=== PATIENT | male | born 1970 | race Caucasian/White ===

== ENCOUNTER 2022-04-08 06:39 | Day surgery (SDC) | payer OTHER, SELFPAY ==
[2022-04-04 11:56] VITALS: BMI 46.0
[2022-04-08] MEDS: sodium chloride 0.9% 1,000 ML 30 ML IV (07:00)
[2022-04-08 07:04] VITALS: BP 155/80; PULSE 78; RESP 20; TEMP 36.3; O2SAT 98
--- NOTE | 2022-04-08 07:40 | W.PM.OPSFHP ---
Same Day Surgery H&P Indication for Procedure/HPI DATE OF PROCEDURE: April 08, 2022 CHIEF COMPLAINT/INDICATIONFOR SURGICAL PROCEDURE: Screening PREOP DIAGNOSIS: screen PLANNED PROCEDURE: Operation Date: 04/08/22 07:30 Proposed Procedures p Colonoscopy 28595,Z12.11(Not Applicable) - Seamus Love MD Medications/Allergies* Home Medications Medication Instructions Recorded Confirmed Type divalproex 500 mg tablet,delayed 500 mg PO BID 03/26/22 04/08/22 History release (Depakote) ibuprofen 800 mg tablet 800 mg PO DAILY 03/26/22 04/04/22 History levothyroxine 75 mcg tablet 75 mcg PO DAILY 03/26/22 04/04/22 History lisinopril 10 mg tablet 10 mg PO BID 03/26/22 04/04/22 History sildenafil 100 mg tablet 100 mg PO DAILY PRN Sexual Activity 03/26/22 04/04/22 History Allergies/Adverse Reactions Allergy/AdvReac Type Severity Reaction Status Date / Time No Known Allergies Allergy Unverified 04/04/22 11:54 Current Medications: Generic Name Dose Route Start Last Admin Trade Name Freq PRN Reason Stop Dose Admin Sodium Chloride 1,000 mls @ 30 mls/hr 04/08/22 06:45 04/08/22 07:00 Sodium Chloride 0.9% IV 30 mls/hr .Q24H RACIEL Administration Pertinent History/Comorbid Conditions* Family History (Updated 01/15/22 @ 09:18 by Kelli Resendez LPN) Clotting disorder Father Grandfather Social History Smoking and tobacco status: former smoker Second hand smoke exposure: Yes Smoking risk assessment/counseling performed?: No Alcohol intake: current Alcohol intake frequency: holidays/special occasions only Alcohol type: beer, wine and hard liquor Desire information about alcohol rehabilitation?: No Counseling given: No Adopted: No Caregiver/support person: Yes Lives independently: No Household members: significant other and children Housing: House Marital status: Number of children: 1 Number of grandchildren: 1 Highest education level completed: Some College, No Degree service: Yes status: Discharged branch: [employer] Assignments: Outside 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
--- NOTE | 2022-04-08 07:54 | P.ANESASSM_ITS ---
Pre-Anesthetic Assessment Height/Weight: Height 1.83 m Weight 154.221 kg Temp Pulse Resp BP Pulse Ox O2 Del Method 97.3 F L 78 20 H 155/80 98 04/08/22 07:04 04/08/22 07:04 04/08/22 07:04 04/08/22 07:04 04/08/22 07:04 04/08/22 07:04 Preop Diagnosis: screen Operation Date: 04/08/22 07:30 Proposed Procedures p Colonoscopy 70495,Z12.11(Not Applicable) - Seamus Love MD Familial anesthetic complications: none Was Beta Kamila taken within 24 hours: N/A Was Clonidine taken within 24 hours: N/A Last intake: Intake Last Liquid Date 04/07/22 Last Liquid Time 20:30 Last Solid Date 04/06/22 Last Solid Time 20:00 Last Intake: 22:00 Social Tobacco (chew 1/2 can a day. last at 0500) and No alcohol Exam alert, oriented x 3, clear to auscultation bilaterally and regular rate & rhythm Airway Submandibular: within normal limits Cervical ROM: within normal limits Mallampati: Class II Dentition: full Pulmonary Sleep Apnea (cpap) CV/HEM Hypertension None reported Hepatic None reported GI None reported Metabolic Morbid Obesity and Thyroid Disease Musc/skel Lower Back Pain Neuropsych Bipolar Anesthetic Plan ASA status: 3 Anesthesia: MAC Risk of > 500 ml blood loss (7ml/kg in children): No Medications/Allergies Home Medications Medication Instructions Recorded Confirmed Last Taken Type divalproex 500 mg tablet,delayed 500 mg PO BID 03/26/22 04/08/22 04/08/22 History release (Depakote) ibuprofen 800 mg tablet 800 mg PO DAILY 03/26/22 04/04/22 04/07/22 History levothyroxine 75 mcg tablet 75 mcg PO DAILY 03/26/22 04/04/22 04/07/22 History lisinopril 10 mg tablet 10 mg PO BID 03/26/22 04/04/22 04/07/22 History sildenafil 100 mg tablet 100 mg PO DAILY PRN Sexual Activity 03/26/22 04/04/22 Unknown History Allergies Allergy/AdvReac Type Severity Reaction Status Date / Time No Known Allergies Allergy Unverified 04/04/22 11:54 Current Medications Generic Name Dose Route Start Last Admin Trade Name Freq PRN Reason Stop Dose Admin Sodium Chloride 1,000 mls @ 30 mls/hr 04/08/22 06:45 04/08/22 07:00 Sodium Chloride 0.9% IV 30 mls/hr .Q24H RACIEL Administration PFSH Anesthesia Family History Father Clotting disorder Grandfather Clotting disorder Social History Smoking and tobacco status: former smoker Second hand smoke exposure: Yes Smoking risk assessment/counseling performed?: No Alcohol intake: current Alcohol intake frequency: holidays/special occasions only Alcohol type: beer, wine and hard liquor Desire information about alcohol rehabilitation?: No Counseling given: No Adopted: No Caregiver/support person: Yes Lives independently: No Household members: significant other and children Housing: House Marital status: Number of children: 1 Number of grandchildren: 1 Highest education level completed: Some College, No Degree service: Yes status: Discharged branch: [employer] Assignments: Outside [facility] ([facility]) Known or Potential Exposure: None Current occupational status: employed 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
[2022-04-08 08:50] VITALS: BP 88/59; PULSE 83; RESP 18; TEMP 36.6; O2SAT 93
[2022-04-08 09:02] VITALS: BP 118/82; PULSE 78; RESP 18; TEMP 36.7; O2SAT 97
--- NOTE | 2022-04-08 14:46 | ANE.PACU2 ---
Inpatient post-anesthesia follow up: Airway intact: Yes Vital signs: Temperature 98.1 F Pulse Rate 78 Respiratory Rate 18 Blood Pressure 118/82 Pulse Oximetry 97 Oxygen Delivery Me thod Room Air Oxygen Flow Rate Fraction of Inspir ed Oxygen Hydration adequate: Yes Nausea and vomiting: No Pain level: 1 Mental status: Baseline
== END 2022-04-08 09:12 | disposition home or self-care (01) ==
PROVIDERS: PCP Emergency Medicine Emergency Medical Services; Visit Provider Internal Medicine
PROC: 0DJD8ZZ Inspection of Lower Intestinal Tract, Via Natural or Artificial Opening Endoscopic (ICD-10-PCS; CPT 45378; principal; 2022-04-08 07:30)
DX: Z12.11 Encounter for screening for malignant neoplasm of colon (principal); F17.220 Nicotine dependence, chewing tobacco, uncomplicated; G47.30 Sleep apnea, unspecified; I10 Essential (primary) hypertension; E66.01 Morbid (severe) obesity due to excess calories; Z68.42 Body mass index [BMI] 45.0-49.9, adult
CPT/HCPCS: 45378; J2704; J7030

== ENCOUNTER → 2022-05-14 12:58 | Outpatient (BNVA) | payer OTHER, SELFPAY | PROVIDERS: PCP Emergency Medicine Emergency Medical Services; Visit Provider Physician Assistant | DX: M47.27 Other spondylosis with radiculopathy, lumbosacral region (principal) | CPT/HCPCS: 72110 ==

== ENCOUNTER 2022-05-16 11:27 | Outpatient (CLI) | payer OTHER, SELFPAY ==
--- NOTE | 2022-05-16 11:45 | MR_ITS ---
WS: [id number] MRI LUMBAR SPINE WITH AND WITHOUT CONTRAST HISTORY: Low back and RIGHT lower extremity pain. No injury. No surgery. COMPARISON: 07/17/2006 TECHNIQUE: Sagittal and axial multisequence imaging is submitted. MultiHance 20 mL IV. Quality of this examination is compromised by body habitus. Straightening of the normal lumbar lordosis. No marrow edema or fracture. Mild disc space narrowing and desiccation. Conus terminates normally at L1-2 disc level. L1-L2: Diffuse disc bulging. Marked ligamentum flavum and facet arthritis. Mild encroachment upon the central canal and foramina. No high-grade stenosis. L2-L3: Diffuse annular disc bulging. There is effacement of ventral CSF and contact on the ventral th ecal sac. Marked ligamentum flavum hypertrophy and facet arthritis. Thecal sac is being deformed. Mod erate central, bilateral subarticular recess and mild foraminal stenosis. Mild progression of stenosi s. L3-L4: Diffuse marked annular disc bulging with osteophytic ridging. Moderate size central disc protr usion deforms the ventral thecal sac with concavity. Marked ligamentum flavum and facet arthritis. Fl uid in the facet joints. Severe central and bilateral subarticular recess stenosis with encroachment upon the traversing L4 nerve roots. Mild foraminal stenosis. Progression since the prior study. L4-L5: Marked annular disc bulging with osteophytic ridging and severe facet and ligamentum flavum hy pertrophy. Suspect LEFT paracentral and proximal foraminal disc protrusion with osteophyte. Severe ce ntral, bilateral subarticular recess and mild foraminal stenosis. Most significant encroachment upon the LEFT lateral thecal sac. Effacement and displacement of the traversing L5 nerve roots. Similar fi ndings noted on the prior study. L5-S1: Diffuse annular disc bulging and osteophytic ridging. Severe bilateral facet joint arthritis. LEFT paracentral disc protrusion or osteophyte extends into the subarticular recess. There is contact on the LEFT lateral thecal sac. Encroachment upon the S1 nerve roots bilaterally. Effacement of fat in the neural foramina, LEFT greater than RIGHT. Severe central, bilateral subarticular recess and fo raminal stenosis. No discitis or osteomyelitis. MR/MR lumbar spine wo/w con [id number] IMPRESSION: 1. Severe central, bilateral subarticular recess stenosis at L3-4 with encroac hment upon the traversing L4 nerve roots. Moderate size central disc protrusion with effacement of the thecal sac. 2. Severe central, bilateral subarticular recess stenosis and mild foraminal s tenosis at L4-5 with effacement and displacement of the traversing L5 nerve werner ts. LEFT paracentral disc osteophyte extends into the subarticular recess. 3. Severe central, bilateral subarticular recess and foraminal stenosis at L5- S1. Disc encroachment upon the S1 nerve roots. LEFT paracentral disc protrusion /osteophyte extends into the subarticular recess and proximal foramina. 4. Moderate central, bilateral subarticular recess and mild foraminal stenosis at L2-3. 5. Multilevel facet joint arthritis.
[2022-05-16] MEDS: gadobenate dimeglumine 20 mL vial IV (12:21)
== END 2022-05-16 11:28 | disposition home or self-care (01) ==
PROVIDERS: PCP Emergency Medicine Emergency Medical Services; Visit Provider Physician Assistant
DX: M79.604 Pain in right leg (principal); M48.061 Spinal stenosis, lumbar region without neurogenic claudication; M48.07 Spinal stenosis, lumbosacral region; M47.816 Spondylosis without myelopathy or radiculopathy, lumbar region
CPT/HCPCS: 72158; A9577

== ENCOUNTER 2022-05-29 20:49 | Inpatient (IN) | payer OTHER, SELFPAY ==
[2022-05-28 13:20] VITALS: BMI 46.9
--- NOTE | 2022-05-28 13:36 | P.ANESASSM_ITS ---
Pre-Anesthetic Assessment Height/Weight: Height 1.83 m Weight 156.943 kg Preop Diagnosis: screen Operation Date: 05/29/22 13:10 Proposed Procedures p PLIF L3/4 L4/5 L5/S1 [id number](Not Applicable) - Keanu Ambrocio DO s Lumbar Spine Decompression(Not Applicable) - Keanu Ambrocio DO Familial anesthetic complications: None (family history of post surgical blood clots)- no personal history of blood clots and has had surgeries before Social Tobacco, No alcohol and No tobacco chews Exam alert, oriented x 3, clear to auscultation bilaterally and regular rate & rhythm Airway Mallampati: Class III Dentition: full Pulmonary Sleep Apnea CV/HEM Hypertension None reported Hepatic None reported GI None reported Metabolic Thyroid Disease Musc/skel Lower Back Pain Neuropsych None reported Anesthetic Plan ASA status: 3 Anesthesia: General Other: A-line +/- transfusion Risk of > 500 ml blood loss (7ml/kg in children): Yes, adequate IV access and fluids planned Medications/Allergies Home Medications Medication Instructions Recorded Confirmed Last Taken Type divalproex 500 mg tablet,delayed 500 mg PO BID 03/26/22 05/28/22 05/28/22 History release (Depakote) ibuprofen 800 mg tablet 800 mg PO DAILY 03/26/22 05/28/22 05/27/22 History levothyroxine 75 mcg tablet 75 mcg PO DAILY 03/26/22 05/28/22 05/28/22 History lisinopril 10 mg tablet 10 mg PO BID 03/26/22 05/28/22 05/28/22 History sildenafil 100 mg tablet 100 mg PO DAILY PRN Sexual Activity 03/26/22 05/28/22 Unknown History tramadol 50 mg tablet 50 mg PO Q4H PRN pain #40 tabs 05/21/22 05/28/22 05/28/22 Rx Intraoperative neuromonitoring #1 ea 05/27/22 Unknown Rx Allergies Allergy/AdvReac Type Severity Reaction Status Date / Time No Known Allergies Allergy Unverified 05/16/22 13:04 [facility] Anesthesia Family History Father Clotting disorder Grandfather Clotting disorder Social History Smoking and tobacco status: former smoker Second hand smoke exposure: Yes Smoking risk assessment/counseling performed?: No Alcohol intake: current Alcohol intake frequency: holidays/special occasions only Alcohol type: beer, wine and hard liquor Desire information about alcohol rehabilitation?: No Counseling given: No Adopted: No Caregiver/support person: Yes Lives independently: No Household members: significant other and children Housing: House Marital status: Number of children: 1 Number of grandchildren: 1 Highest education level completed: Some College, No Degree service: Yes status: Discharged branch: [employer] Assignments: Outside [facility] ([facility]) Known or Potential Exposure: None Current occupational status: employed 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
[2022-05-29] VITALS (32 sets, daily range): BP systolic 92–150; BP diastolic 64–117; PULSE 88–139; RESP 10–31; TEMP 36.8; O2SAT 92–100
[2022-05-29] MEDS: sodium chloride 0.9% 1,000 ML 30 ML IV (14:14)
[2022-05-29] MEDS: fentaNYL 50 mcg/mL INJ 2mL IVP (14:14)
[2022-05-29 14:23] LABS: Basophils # 0.1 10^3/uL (0.0-0.1); Basophils % 0.7 %; Eosinophils # 0.3 10^3/uL (0.0-0.8); Eosinophils % 4.3 %; Hematocrit 43.4 % (42.0-52.0); Hemoglobin 14.5 g/dL (11.7-16.6); Lymphocytes # 2.6 10^3/uL (0.8-4.8); Lymphocytes % 33.3 %; Mean Corpuscular HGB Conc 33.4 g/dL (30.0-36.0); Mean Corpuscular Hemoglobin 29.8 pg (28.0-34.0); Mean Corpuscular Volume 89.3 fl (80-94); Monocytes # 0.6 10^3/uL (0.2-0.9); Monocytes % 7.8 %; Neutrophils # 4.12 10^3/uL (1.8-7.7); Neutrophils % 53.5 %; Nucleated Red Blood Cells % 0 %; Platelet Count 325 10^3/cmm (130-400); Red Blood Count 4.86 10^6/uL (4.1-5.3); Red Cell Distribution Width 13.1 % (12.1-15.1); White Blood Count 7.7 10^3/uL (4.0-10.0)
--- NOTE | 2022-05-29 14:23 | P.ANESUD_ITS ---
Pre-Anesthetic Update Pre-Anesthetic Assessment: Date of Surgery/Procedure: 05/29/22 Preop Doris gnosis: DDD Lumbar spine with Spondylosis and Radiculopathy Proposed Procedure: Operation Date: 05/29/22 14:55 Proposed Procedures p PLIF L3/4 L4/5 L5/S1 [id number](Not Applicable) - Keanu Ambrocio, DO s Lumbar Spine Decompression(Not Applicable) - Keanuusman Ambrocio, DO Any changes to Pre-Anesthetic Assessment?: No Last Intake: Intake Last Liquid Date 05/29/22 Last Liquid Time 08:00 Last Solid Date 05/28/22 Last Solid Time 21:00 Labs Last 48hrs: Short CBC 05/29/22 Range/Units 14:05 WBC 7.7 (4.0-10.0) 10^3/ uL Hgb 14.5 (11.7-16.6) g/dL Hct 43.4 (42.0-52.0) % MCV 89.3 (80-94) fl Plt Count 325 (130-400) 10^3/c mm Neut % (Auto) 53.5 % Neut # (Auto) 4.12 (1.8-7.7) 10^3/u L Vitals: Temperature 98.3 F 05/29/22 13:50 Temperature Source Temporal Artery S can 05/29/22 13:50 Pulse Rate 88 05/29/22 13:50 Pulse Rhythm 05/29/22 13:50 Pulse Strength 3+ Normal 05/29/22 13:50 Respiratory Rate 18 05/29/22 13:50 Blood Pressure 142/96 05/29/22 13:50 Blood Pressure Zofia n 111 05/29/22 13:50 Pulse Oximetry 95 05/29/22 13:50 Oxygen Delivery Me thod 05/29/22 13:50 Exam: Pre-Anes Outpt Exam: alert, oriented x 3, clear to auscultation bilaterally and regular rate & rhythm Cardiac Studies: No Data to Display
--- NOTE | 2022-05-29 14:35 | W.PM.OPSUD ---
Surgery/Procedure H&P Update DATE OF PROCEDURE: May 29, 2022 DATE H&P PERFORMED: 05/16/22 H&P UPDATE INFORMATION: I have reviewed H&P completed within last 30 days, I have examined patient prior to procedure and No changes to prior documentation PREOP DIAGNOSIS: DDD Lumbar spine with Spondylosis and Radiculopathy PLANNED PROCEDURE: Operation Date: 05/29/22 14:55 Proposed Procedures p PLIF L3/4 L4/5 L5/S1 [id number](Not Applicable) - DO carlos Rose Lumbar Spine Decompression(Not Applicable) - Keanu Ambrocio DO
[2022-05-29] MEDS: ceFAZolin 2,000 MG in sodium chloride 0.9% (plus) 50 ML 100 MG IV ×2 (14:40→18:40)
[2022-05-29] MEDS: vancomycin 1,000 MG SDV 1000 MG XX (16:37)
[2022-05-29] MEDS: heparin, porcine 1,000 unit/mL INJ 10 mL 10000 UNIT IRRIGATION (16:37)
[2022-05-29 18:02] LABS: Hematocrit 43.6 % (42.0-52.0); Hemoglobin 14.5 g/dL (11.7-16.6); Mean Corpuscular HGB Conc 33.3 g/dL (30.0-36.0); Mean Corpuscular Hemoglobin 30.1 pg (28.0-34.0); Mean Corpuscular Volume 90.5 fl (80-94); Mean Platelet Volume 11.5 fL (7.4-10.4); Platelet Count 330 10^3/cmm (130-400); Red Blood Count 4.82 10^6/uL (4.1-5.3); Red Cell Distribution Width 13.2 % (12.1-15.1); White Blood Count 7.8 10^3/uL (4.0-10.0)
[2022-05-29 18:03] LABS: Absolute Neutrophil 5.9 10^3/cmm (1.4-6.5); Absolute Segmented Neutrophil 5.9 10/cmm (1.6-7.1); Eosinophils 0 %; Lymphocytes 15 %; Lymphocytes Absolute 1.4 10^3/cmm (1.2-3.4); Monocytes Absolute 0.3 10^3/cmm (0.1-0.6); Platelet Estimate Normal (Normal); Segmented Neutrophils 75 %; Total Cells Counted 100 (0-100)
--- NOTE | 2022-05-29 20:45 | XR_ITS ---
WS: [id number] INTRAOPERATIVE TECHNIQUE: 4 Spot fluoroscopic images for intraoperative purposes. FLUOROSCOPY TIME: 14 seconds CLINICAL INFORMATION: OR PICS COMPARISON: None. FINDINGS: Intraoperative changes pedicle screw fixation. Interbody fusion grafts L3-S1. XR/XR lumbar spine 1V [id number] IMPRESSION: Images obtained for intraoperative purposes.
--- NOTE | 2022-05-29 20:55 | P.CONIM_ITS ---
Providers/Reason For Consult Consulting Physician/Specialty*: Hospitalist Reason for Consult*: Postoperative management Attending Physician: Keanu Ambrocio DO Primary Care Provider: Jigar Wing DO History of Present Illness History of Present Illness Garry Lao is a 51 year old male status post 3 level posterior lumbar interbody fusion, hospitalist service has been requested for postoperative management. As per Dr. Ambrocio there was significant blood loss during surgery, h e will monitor patient in ICU postoperatively. Elective surgery for lumbosacral degenerative changes, spinal stenosis intractable pain due to spondylosis and radiculopathy. Patient was seen in the ICU, patient is still sedated, off Is trying MAP off 77, patient clinically looks fluid overloaded I will give him 40 mg of IV Lasix, will request ABG, patient was extubated in PACU I requested ICU nurse to get another H&H Estimated blood loss 2200 mL status post 2 unit PRBC in the OR Review of Systems General: Reports: ROS unobtainable due to medical condition (Postoperative, sedation) Medications/Allergies Home Medications Medication Instructions Recorded Confirmed Last Taken Type divalproex 500 mg tablet,delayed 500 mg PO BID 03/26/22 05/28/22 05/29/22 History release (Depakote) ibuprofen 800 mg tablet 800 mg PO DAILY 03/26/22 05/28/22 05/27/22 History levothyroxine 75 mcg tablet 75 mcg PO DAILY 03/26/22 05/28/22 05/28/22 History lisinopril 10 mg tablet 10 mg PO BID 03/26/22 05/28/22 05/28/22 History sildenafil 100 mg tablet 100 mg PO DAILY PRN Sexual Activity 03/26/22 05/28/22 Unknown History tramadol 50 mg tablet 50 mg PO Q4H PRN pain #40 tabs 05/21/22 05/28/22 05/28/22 Rx Intraoperative neuromonitoring #1 ea 05/27/22 Unknown Rx Allergies Allergy/AdvReac Type Severity Reaction Status Date / Time No Known Allergies Allergy Unverified 05/16/22 13:04 Current Medications Generic Name Dose Route Start Last Admin Trade Name Freq PRN Reason Stop Dose Admin Fentanyl 50 mcg 05/29/22 13:47 05/29/22 14:14 Fentanyl 50 Mcg/Ml Inj 2ml IVP 50 mcg Q10M PRN Administration Preop Pain Sodium Chloride 1,000 mls @ 30 mls/hr 05/29/22 14:00 05/29/22 14:14 Sodium Chloride 0.9% IV 05/30/22 13:59 30 mls/hr .Q24H RACIEL Administration PFSH Acute PFSH: Medical History Hypertension Hypothyroid Surgical History History of lumbar laminectomy for spinal cord decompression History of tonsillectomy and adenoidectomy Hx of myringotomy Family History Father Clotting disorder Grandfather Clotting disorder Social History Smoking and tobacco status: former smoker Second hand smoke exposure: Yes Smoking risk assessment/counseling performed?: No Alcohol intake: current Alcohol intake frequency: holidays/special occasions only Alcohol type: beer, wine and hard liquor Desire information about alcohol rehabilitation?: No Counseling given: No Adopted: No Caregiver/support person: Yes Lives independently: No Household members: significant other and children Housing: House Marital status: Number of children: 1 Number of grandchildren: 1 Highest education level completed: Some College, No Degree service: Yes status: Discharged branch: [employer] ([employer]) Assignments: Outside [facility] ([facility]) Known or Potential Exposure: None Current occupational status: employed 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 Current occupational exposures/hazards: No Pets and animals: Yes History of recent travel: Yes Sexually active: Yes Current gender identity: Male Special johan needs: No Agree to transfusion: Yes Vitals/I&O/Wt Last Vital Signs Temp 98.3 F 05/29/22 13:50 Pulse 104 H 05/29/22 20:08 Resp 18 05/29/22 13:50 BP 102/68 05/29/22 20:08 Pulse Ox 100 05/29/22 20:08 O2 Del Method 05/29/22 13:50 05/29/22 05/29/22 05/29/22 06:59 14:59 22:59 Intake Total 50 / 50 750 / 800 Balance 50 / 50 750 / 800 Weight last 48 hrs Weight 156.943 kg Physical Exam Narrative: Morbidly obese male Currently sedated under the effect of anesthesia On facemask Saturating 100% MAP 77 Clinically looks fluid overloaded 1+ pitting edema of lower legs Multiple skin tattoos Abdomen distended, soft on palpation Neuro exam is limited S1, S2 sinus tachycardia Left art line in place showing good waveform Urinary Catheter Management: Doss: Cath Placed During This Visit: yes Urinary Catheter Date of Insertion: 05/29/22 Urinary Catheter Time of Insertion: 15:00 Data 05/29/22 17:16 A&P Assessment and plan (1) Lumbosacral spondylosis with radiculopathy: (2) DDD (degenerative disc disease), lumbosacral: (3) Deficient knowledge of posterior lumbar interbody fusion (PLIF): Plan Postop day 0 PLIF 3 level spine fusion Significant blood loss perioperative 2200 mL status post 2 unit PRBC Will request H&H Patient is still drowsy since extubation in PACU Will request ABG Hemodynamically stable We will give him 40 mg of IV Lasix Hold antitussive agents ICU nurse updated Full code DVT prophylaxis as per orthopedics Currently on SCDs because of significant blood loss Start diet once she is more awake and alert, passing gas Consult Attestations Medical Necessity Statement: As per orthopedics Time Spent in Patient Care: 35 Coding Level of Care Code 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
--- NOTE | 2022-05-29 20:55 | PM.OP ---
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 L3/4 Interbody fusion with posterolateral fusion 2. L4/5 Interbody fusion with posterolateral fusion 3. L5/S1 Interbody fusion with posterolateral fusion 4. Instrumentaton L3-S1 5. Cage L3/4 6. Cage at L4/5 7. Cage L5/S1 8.. Laminectomy L3/4 with partial facetectomies 9. Laminectomy L4/5 with partial facetectomies 10. Laminectomy L5/S1 with partial facetectomies 11. use of autograft from same incision 12. allograft 13. Bone marrow aspirate from right iliac crest 14. Use of computer navigation stereotactic iliac crest Surgeon: Keanu Ambrocio Vice President Of Instruction: Giovanni Trejo Vice President Of Instruction: The surgical garment assembler, Giovanni Trejo, PAC was needed for his expertise under the microscope. He was important and necessary throughout the procedure to complete in a safe and timely manner. He assisted with patient positioning prepping and draping tissue retraction suctioning of the operative field protection of the dural sac and tissue closure Estimated blood loss (mL): 2,200 Procedure: 1. L3/4 Interbody fusion with posterolateral fusion 2. L4/5 Interbody fusion with posterolateral fusion 3. L5/S1 Interbody fusion with posterolateral fusion 4. Instrumentaton L3-S1 5. Cage L3/4 6. Cage at L4/5 7. Cage L5/S1 8.. Laminectomy L3/4 with partial facetectomies 9. Laminectomy L4/5 with partial facetectomies 10. Laminectomy L5/S1 with partial facetectomies 11. use of autograft from same incision 12. allograft 13. Bone marrow aspirate from right iliac crest 14. Use of computer navigation stereotactic iliac crest Patient is brought to the operative suite. After undergoing anesthesia, the patient had neuro monitoring attached. Patient was then placed in the prone position on the Da table. All areas of impingement were well-padded. Patient was then prepped and draped in the normal sterile fashion. Skin incision was then made over the L3 to S1. Subperiosteal dissection was made out to the transverse processes of L3 and S1. The [employer] bone marrow aspirate kit was used to aspirate bone marrow aspirate from the right iliac crest. This was done by using the sharp probe to open up the bone. Aspiration was performed and then the blunt probe was then used to dissect down to through the bone tunnel. An aspirating well drawn back a millimeter approximately 20 cc of bone marrow aspirate was used. Admixed with the allograft and autograft bone that will be used. Extension was used using the computer navigation. 2 pins were placed in the right iliac crest. The fiducial was then attached to these 2 pins after they were drilled into the iliac crest on the right side. These pins were later removed at the end of the case. The C-arm was then brought in and the information from the C-arm was then linked in the computer. And then later used for placing the pedicle screws. The technique for placing the pedicle screws was to use a drill followed by the gearshift probe linked to computer navigation. Followed by the ball probe to feel the superior inferior medial lateral cheng of the pedicles. Then placement of the screws using computer navigation. Was done at each pedicle. Screws were placed at L3 bilaterally, L4 bilaterally, L5 bilaterally and S1. Next attention was brought to performing the laminectomy ofL3. This was done using the high-speed bur Kerrisons and curettes. Once the lamina was removed and then attention was brought to performing a partial facetectomy on the contralateral side. This was done again using the high-speed bur curettes and Kerrisons. The ligamentum flavum was taken down bilaterally from L3 to L4. Attention was then brought to the facet on the ipsilateral side. The facet was taken down. The L4 nerve was decompressed as it passed around the L4 pedicle. The laminectomy was done for purposes of decompressing the nerve as well as placement of the cage. The L3 nerve was identified as it traversed through the L3/4 foramen. The thecal sac was identified and retracted. The L3/4 disc base was identified. Using a knife the disc base was opened. And then sequential pedro were placed. The first shaver was a 6 and the last shaver was a 8. Using a pituitary and down going curette the endplates were scraped and disc material was removed from the space. Once adequate decompression of the disc base was felt to be had. Osteoamp sponge was packed into the anterior aspect of the disc base. Then a size 8 cage from [employer] was placed after packing osteoamp into the cage. While placing the cage the thecal sac and L4 nerve was protected. C arm was used to ensure that the cages placed in the appropriate position. Next attention was brought to performing the laminectomy ofL4. This was done using the high-speed bur Kerrisons and curettes. Once the lamina was removed and then attention was brought to performing a partial facetectomy on the contralateral side. This was done again using the high-speed bur curettes and Kerrisons. The ligamentum flavum was taken down bilaterally from L4 to L5. Attention was then brought to the facet on the ipsilateral side. The facet was taken down. The L5 nerve was decompressed as it passed around the L5 pedicle. The laminectomy was done for purposes of decompressing the nerve as well as placement of the cage. The L4 nerve was identified as it traversed through the L4/5 foramen. The thecal sac was identified and retracted. The L4/5 disc base was identified. Using a knife the disc base was opened. And then sequential pedro were placed. The first shaver was a 6 and the last shaver was a 8. Using a pituitary and down going curette the endplates were scraped and disc material was removed from the space. Once adequate decompression of the disc base was felt to be had. Osteoamp sponge was packed into the anterior aspect of the disc base. Then a size 8 cage from [employer] was placed after packing osteoamp into the cage. While placing the cage the thecal sac and L5 nerve was protected. C arm was used to ensure that the cages placed in the appropriate position. Next attention was brought to performing the laminectomy ofL5. This was done using the high-speed bur Kerrisons and curettes. Once the lamina was removed and then attention was brought to performing a partial facetectomy on the contralateral side. This was done again using the high-speed bur curettes and Kerrisons. The ligamentum flavum was taken down bilaterally from L5 to S1. Attention was then brought to the facet on the ipsilateral side. The facet was taken down. The S1 nerve was decompressed as it passed around the S1 pedicle. The laminectomy was done for purposes of decompressing the nerve as well as placement of the cage. The L5 nerve was identified as it traversed through the L5/S1 foramen. The thecal sac was identified and retracted. The L5/S1 disc base was identified. Using a knife the disc base was opened. And then sequential pedro were placed. The first shaver was a 6 and the last shaver was a 11. Using a pituitary and down going curette the endplates were scraped and disc material was removed from the space. Once adequate decompression of the disc base was felt to be had. Osteoamp sponge was packed into the anterior aspect of the disc base. Then a size 11 cage from [employer] was placed after packing osteoamp into the cage. While placing the cage the thecal sac and S1 nerve was protected. C arm was used to ensure that the cages placed in the appropriate position. Attention was then brought to attaching the rods to the screws placed in the L3 bilaterally, L4 bilaterally, L5 bilaterally and S1 bilaterally. Caps were torqued into position. Locking the construct in place. Wound was copiously irrigated and then attention was brought to decorticating the facets and transverse processes laterally. Bone that was taken down from the lamina was used along with osteoamp fibers and sponges were packed into the lateral gutters along the facet joints. This was done bilaterally. Wound was then closed in a layered fashion starting with the thoracolumbar fascia. 0-vicryl was used the sub cutaneous tissue was closed with 2-0 vicryl and skin with 4-0 monocryl. Glue was then used to seal the skin and a steril dressing was applied. Patient was then placed in the supine position. The endotracheal tube was removed and patient was transferred to the PACU in stable condition.
--- NOTE | 2022-05-29 21:06 | XRR_ITS ---
PROCEDURE INFORMATION: Exam: XR Lumbosacral Spine Exam date and time: 05/30/2022 4:21 AM Age: 51 years old Clinical indication: Device placement; Other; Prior surgery; Surgery date: Post-operative (0-2 days); Patient HX: Lumbar fusion 05/29/2022. Patient unable to lay supine. Laying on RT side. Films repeated due to grid artifact. Large body habitus weighing 350 pounds. Best films obtained. ; Additional info: Post op TECHNIQUE: Imaging protocol: Radiologic exam of the lumbosacral spine. Views: 2 or 3 views. Total images: 1 COMPARISON: OT XR lumbar spine 1V [id number] 05/29/2022 3:28 PM FINDINGS: Bones/joints: L3-S1 Posterior spinal fusion and laminectomy noted. Rods and pedicle screws are in place and there is no evidence of hardware failure. Disc spacers appear appropriately positioned. Spinal degenerative changes are evident. Soft tissues: Unremarkable. XR/XR lumbar spine 2-3V* [id number] IMPRESSION: L3-S1 Posterior spinal fusion and laminectomy noted. Rods and pedicle screws are in place and there is no evidence of hardware failure. Disc spacers appear appropriately positioned.
--- NOTE | 2022-05-29 21:35 | PC.NURSE ---
Transfer Note Patient transferred to ICU from OR via bed. Handoff received from []. Patient oriented to environment and equipment. Covering service notified. Orders reviewed and will continue to monitor. Family and/or event marketing representative notified. Patient unresponsive to painful/verbal stimuli upon arrival to unit. Oral airway, left wrist arterial line & tomlinson catheter in place from OR upon arrival. Patient belongings placed at bedside.
[2022-05-29 22:22] LABS: Hematocrit 37.6 % (42.0-52.0); Hemoglobin 12.2 g/dL (11.7-16.6)
[2022-05-29] MEDS: FUROsemide 10 mg/mL SDV 4mL 40 MG IVP (22:53)
--- NOTE | 2022-05-29 23:28 | PC.NURSE ---
Update Oral airway removed, patient grunting and rolling around bed. Patient remains very groggy from surgery, unable to answer questions at this time.
[2022-05-29] MEDS: morphine 4 mg/mL SDV 1 mL 2 MG IVP (23:45)
[2022-05-29 23:47] LABS: ABG PCO2 36.7 mmHg (35-45); ABG PH Result 7.35 (7.35-7.45); Arterial Blood Gas Hematocrit 39.2 % (42-52); Base Excess ABG -4.7 mmol/L (-2.0-2.0); Blood Gas Operator Identificat JB; Blood Gas Sample Site Not specified; Blood Gas Sample Type Arterial; HCO3 ABG 20.3 mmol/L (22-26); Oxygen Device NC
[2022-05-30] VITALS (96 sets, daily range): BP systolic 100–191; BP diastolic 50–120; PULSE 96–156; RESP 0–22; TEMP 37.2–37.4; O2SAT 90–100
[2022-05-30] MEDS: morphine 4 mg/mL SDV 1 mL 2 MG IVP ×6 (00:45→22:11)
--- NOTE | 2022-05-30 01:53 | ECG_ITS ---
[facility] Test Date: 2022-05-30 Pat Name: Garry Lao Department: Room: ICU03 Gender: Male Breaker Layer: : 1970 Requested By: Lamont Moreno Order Number: [id number] Tay MD: Vipin Sethi M.D. Measurements Intervals [place] Rate: 138 P: 57 ID: [id number] QRS: 42 QRSD: 77 T: 80 QT: 286 QTc: 435 Interpretive Statements SINUS TACHYCARDIA SEPTAL MYOCARDIAL INFARCTION , PROBABLY OLD [40+ ms Q WAVE IN V1/V2] No previous ECG available for comparison Electronically Signed On 05-31-2022 13:50:24 [employer] by Vipin Sethi M.D. [id number]
[2022-05-30] MEDS: ceFAZolin 2,000 MG in sodium chloride 0.9% (plus) 50 ML 100 MG IV ×3 (02:47→18:27)
--- NOTE | 2022-05-30 03:00 | PC.NURSE ---
Arterial Line Upon physical assessment nurse noted left wrist arterial line had been pulled out. Catheter tip intact, no bleeding noted from insertion site-covered with dressing, dry/intact.
[2022-05-30 03:27] LABS: Basophils % 0.2 %; Hematocrit 37.3 % (42.0-52.0); Hemoglobin 12.4 g/dL (11.7-16.6); Mean Corpuscular HGB Conc 33.2 g/dL (30.0-36.0); Mean Corpuscular Hemoglobin 29.9 pg (28.0-34.0); Mean Corpuscular Volume 89.9 fl (80-94); Mean Platelet Volume 11.7 fL (7.4-10.4); Monocytes # 0.9 10^3/uL (0.2-0.9); Monocytes % 5.4 %; Neutrophils # 14.58 10^3/uL (1.8-7.7); Neutrophils % 87.8 %; Nucleated Red Blood Cells % 0 %; Platelet Count 308 10^3/cmm (130-400); Red Blood Count 4.15 10^6/uL (4.1-5.3); Red Cell Distribution Width 13.5 % (12.1-15.1); White Blood Count 16.6 10^3/uL (4.0-10.0)
[2022-05-30 03:51] LABS: Alanine Aminotransferase 46 U/L (0-41); Albumin Level 3.9 g/dL (3.5-5.2); Alkaline Phosphatase 51 U/L (40-130); Anion Gap 17.7 (5-19); Aspartate Amino Transferase 54 U/L (0-40); Blood Urea Nitrogen 25 mg/dL (6-20); Calcium 7.8 mg/dL (8.5-10.5); Carbon Dioxide 21 mmol/L (22-29); Chloride 102 mmol/L (98-107); Globulin 2.3 g/dL (1.3-4.6); Glomerular Filtration Rate 78.8 mL/min (90-130); Glucose 261 mg/dL (65-115); Osmolality Calculated 295 mOsm/kg (285-295); Potassium 4.7 mmol/L (3.5-5.1); Sodium 136 mmol/L (136-145); Total Bilirubin 0.5 mg/dL (0.15-1.2); Total Protein 6.2 g/dL (6.6-8.7)
[2022-05-30 06:03] LABS: D Dimer 2.25 ug/mIFEU (0-0.59)
--- NOTE | 2022-05-30 06:55 | PC.NURSE ---
Shift Note Frequent safety and comfort rounds continue. Orders and/or nursing care completed as indicated. Patient monitored for response to intervention and treatment(s). Education provided includes treatment plan and medications. Patient verbalized understanding of teaching. Patient had an eventful shift, please see previous notes for detail. Patient remains on room air and is alert/oriented x4. Hemovac drain on back drained 510 mls of blood overnight. Doss catheter drained 1500 mls of urine overnight. Patient reported back pain overnight, PRN medication administered see MAR for detail. Will continue to monitor.
--- NOTE | 2022-05-30 07:00 | XRR_ITS ---
PROCEDURE INFORMATION: Exam: XR Chest Exam date and time: 05/30/2022 4:30 AM Age: 51 years old Clinical indication: Prior surgery; Surgery date: Post-operative (0-2 days); Patient HX: Patient hypoxic post lumbar fusion surgery on 05/29/2022. Patient unable to lay supine and obliqued approx 45 degrees. Large body habitus weighing 350 pounds. Best film obtained; Additional info: Post op hypoxia TECHNIQUE: Imaging protocol: Radiologic exam of the chest. Views: 1 view. Total images: 238 COMPARISON: No relevant prior studies available. FINDINGS: Lungs: Trace atelectasis or scar noted in the left lung base. Pleural spaces: Unremarkable. No pleural effusion. No pneumothorax. Heart/Mediastinum: Low lung volumes are present, accentuating cardiac size and pulmonary markings. Diaphragm: There is nonspecific elevation of the right hemidiaphragm. Bones/joints: Unremarkable. Other findings: X-ray is slightly rotated. XR/XR chest 1V portable [id number] IMPRESSION: 1. Low lung volumes are present, accentuating cardiac size and pulmonary markings. 2. Trace atelectasis or scar noted in the left lung base.
--- NOTE | 2022-05-30 08:10 | P.PN_ITS ---
Subjective Subjective: Patient doing well states his legs feel better. At this point he is in the ICU. Pain is controlled. Vitals/I&O/Wt Last Vital Signs Temp 98.3 F 05/29/22 13:50 Pulse 121 H 05/30/22 08:02 Resp 16 05/30/22 08:02 BP 118/95 05/30/22 04:25 Pulse Ox 93 05/30/22 08:02 O2 Del Method 05/30/22 08:02 O2 Flow Rate 10 05/29/22 21:50 05/29/22 05/30/22 05/30/22 22:59 06:59 14:59 Intake Total 750 / 800 550 / 1350 Output Total 2009 Balance 750 / 800 -1460 / -660 Weight last 48 hrs Weight 346 lb Physical Exam Narrative: 5 5 strength bilateral lower extremities. Dressing clean dry and intact. Urinary Catheter Management: Doss: Cath Placed During This Visit: yes Reason for Continuing Indwelling Catheter: Accurate Measurement of Urinary Output in Critically Ill Patients Urinary Catheter Date of Insertion: 05/29/22 Urinary Catheter Time of Insertion: 15:00 Data 05/30/22 02:35 05/30/22 02:35 A&P Assessment and plan (1) Status post lumbar spinal fusion: Postop day #1 L3-S1 PLIF. DC Doss DC Hemovac drain Up with physical therapy Likely transfer to floor. Attestations Medical Necessity Statement*: Pain control Coding Level of Care Code Acute Matrix Inspector for Gema Bray Diagnoses Status post lumbar spinal fusion Z98.1
[2022-05-30] MEDS: divalproex DR 500 mg Tablet PO ×2 (08:26→18:27)
[2022-05-30] MEDS: levothyroxine 75 mcg Tablet PO (08:26)
--- NOTE | 2022-05-30 08:33 | PC.PHAR ---
pt states he takes care of his own medications-[facility]22 depakote er 500mg bid 90d/s [facility] states rx [facility]-pt states he thinks its dr 500mg bid last filled 11/26/21 90d/d-notes are made in the pharmacy comments
--- NOTE | 2022-05-30 13:14 | PC.NURSE ---
Dr. Ambrocio at bedside earlier this morning, gave V.O. to remove Hmovac wound drain and remove foly cath This nurse notified Dr. Tay of persistent HR 130s to 140s, HCP to out in orders
--- NOTE | 2022-05-30 13:18 | PC.NURSE ---
Patient requested to wait on pulling foly cath
--- NOTE | 2022-05-30 13:35 | ANE.PACU2 ---
Inpatient post-anesthesia follow up: Airway intact: Yes Vital signs: Temperature 99.4 F Pulse Rate 133 Respiratory Rate 22 Blood Pressure 143/106 Pulse Oximetry 94 Oxygen Delivery Me thod Room Air Oxygen Flow Rate 10 Fraction of Inspir ed Oxygen Hydration adequate: Yes Nausea and vomiting: No Pain level: 1 Mental status: Baseline
[2022-05-30] MEDS: metoprolol tartrate 1 mg/1 mL SDV 5 mL 2.5 MG IVP (16:20)
[2022-05-30] MEDS: metoprolol succinate ER (24 HR) 25 mg Tablet 12.5 MG PO (16:20)
[2022-05-30] MEDS: HYDROcodone-acetaminophen 10-325 mg Tablet PO (16:39)
--- NOTE | 2022-05-30 18:01 | P.PN_ITS ---
Subjective Subjective: Patient states that his pain over the back is controlled, however has pain over right shoulder. He is noted to be tachycardic with heart rate ranging between 120 to 150 bpm. He is asymptomatic from the standpoint. Blood pressure is ranging between 1 30-1 60 systolic. Patient denies any past history of atrial arrhythmias. Sinus tachycardia is noted on telemetry and on EKG monitoring. Denies any palpitations at this time. D-dimer is noted to be elevated, however this is a postsurgical patient's or not an unexpected finding. He is saturating well on room air. Denies any dyspnea. Denies any chest pain. Medications: Reviewed: Yes Vitals/I&O/Wt Last Vital Signs Temp 99.4 F 05/30/22 10:13 Pulse 110 H 05/30/22 17:30 Resp 16 05/30/22 17:30 BP 138/116 05/30/22 17:30 Pulse Ox 93 05/30/22 17:30 O2 Del Method 05/30/22 08:02 O2 Flow Rate 10 05/29/22 21:50 05/30/22 05/30/22 05/30/22 06:59 14:59 22:59 Intake Total 550 / 1350 1000 / 1000 Output Total 2009 Balance -1460 / -660 1000 / 1000 Physical Exam Narrative: General: No acute distress, AO x3 HEENT: PERRLA, pupils bilaterally equal and reactive, pallors not present Chest: Normal vesicular breath sounds, no added sounds, equal good air entry bilaterally CVS: S1-S2 regular, no murmurs, no tachycardia, no gallops, no rubs Abdomen: Soft, nontender, no organomegaly, bowel sounds present Neuro: No focal deficits, no facial deformity, AO x3, power 5/5 in all limbs Urinary Catheter Management: Doss: Cath Placed During This Visit: yes Reason for Continuing Indwelling Catheter: Accurate Measurement of Urinary Output in Critically Ill Patients Urinary Catheter Date of Insertion: 05/29/22 Urinary Catheter Time of Insertion: 15:00 Data 05/30/22 02:35 05/30/22 02:35 A&P Assessment and plan (1) Lumbosacral spondylosis with radiculopathy: (2) DDD (degenerative disc disease), lumbosacral: (3) Deficient knowledge of posterior lumbar interbody fusion (PLIF): Plan Postop day 1 PLIF 3 level spine fusion Significant blood loss perioperative 2200 mL status post 2 unit PRBC H&H stable Hemodynamically stable for tachycaardia, may be related to pain, anxiety, unknown past baseline sinus tachycardia on EKG and tele Optimize pain control start metoprolol 12.5 po BID, will titrate as needed Low suspicion for PE though elevated d dimer, likely related to post op state. Patient saturating well on RA, no chest pain or dyspnea. Denies any smoking or alcohol consumption history, no h/o IVDU, unlikely withdrawal will check TSH currently euvolemic, hold further doses of lasix Full code DVT prophylaxis as per orthopedics Attestations Medical Necessity Statement*: per admitting note Coding Level of Care Code Acute Acoustical Tile Patternmaker for Gema Bray Diagnoses Lumbosacral spondylosis with radiculopathy M47.27 DDD (degenerative disc disease), lumbosacral M51.37 Deficient knowledge of posterior lumbar interbody fusion (PLIF)
--- NOTE | 2022-05-30 18:06 | PC.NURSE ---
Patient again requested to wait to take out foly cath and wound drain to back
[2022-05-30] MEDS: ketorolac 30 mg/mL INJ IVP (18:58)
--- NOTE | 2022-05-30 19:15 | PC.NURSE ---
Hemovac removed per order from Dr. Ambrocio, HCP aware of drain having 500 ml put out during previous shift and still putting out this shift, site clean dry and intact at this time
[2022-05-31] VITALS (13 sets, daily range): BP systolic 107–154; BP diastolic 52–91; PULSE 96–119; RESP 11–17; TEMP 37.1; O2SAT 93–98
[2022-05-31 03:06] LABS: Basophils % 0.2 %; Eosinophils % 0.1 %; Hematocrit 28.6 % (42.0-52.0); Hemoglobin 9.6 g/dL (11.7-16.6); Lymphocytes % 18.2 %; Mean Corpuscular HGB Conc 33.6 g/dL (30.0-36.0); Mean Corpuscular Hemoglobin 30.5 pg (28.0-34.0); Mean Corpuscular Volume 90.8 fl (80-94); Mean Platelet Volume 11.7 fL (7.4-10.4); Monocytes # 2.2 10^3/uL (0.2-0.9); Neutrophils # 11.15 10^3/uL (1.8-7.7); Neutrophils % 66.8 %; Nucleated Red Blood Cells % 0 %; Platelet Count 260 10^3/cmm (130-400); Red Blood Count 3.15 10^6/uL (4.1-5.3); Red Cell Distribution Width 13.6 % (12.1-15.1); White Blood Count 16.7 10^3/uL (4.0-10.0)
[2022-05-31 03:37] LABS: Alanine Aminotransferase 33 U/L (0-41); Albumin Level 3.5 g/dL (3.5-5.2); Alkaline Phosphatase 46 U/L (40-130); Anion Gap 14.4 (5-19); Aspartate Amino Transferase 45 U/L (0-40); Blood Urea Nitrogen 35 mg/dL (6-20); Calcium 7.8 mg/dL (8.5-10.5); Carbon Dioxide 25 mmol/L (22-29); Chloride 98 mmol/L (98-107); Globulin 2.1 g/dL (1.3-4.6); Glomerular Filtration Rate 70.6 mL/min (90-130); Glucose 282 mg/dL (65-115); NT Pro B Type Natriuretic Pept 89 pg/mL (0-125); Osmolality Calculated 294 mOsm/kg (285-295); Potassium 4.4 mmol/L (3.5-5.1); Sodium 133 mmol/L (136-145); Thyroid Stimulating Hormone 1.07 uIU/mL (0.27-4.20); Total Bilirubin 0.4 mg/dL (0.15-1.2); Total Protein 5.6 g/dL (6.6-8.7)
[2022-05-31] MEDS: HYDROcodone-acetaminophen 10-325 mg Tablet PO ×2 (04:36→10:03)
--- NOTE | 2022-05-31 06:10 | PC.NURSE ---
Dr. Ambrocio to bedside to see patient. States I will discharge him today if it is ok with hospitalist.
--- NOTE | 2022-05-31 06:43 | PM.DCS ---
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 Kept in the ICU because of the blood loss. Physical Exam Narrative: 5 5 strength bilateral lower extremities up with therapy doing well. Urinary Catheter Management: Doss: Cath Placed During This Visit: yes, but has since been removed by the nurse Reason for Continuing Indwelling Catheter: Decision to DC Catheter Urinary Catheter Date of Insertion: 05/29/22 Urinary Catheter Time of Insertion: 15:00 Date Urinary Catheter Removed: 05/31/22 Time Urinary Catheter Discontinued: 04:30 Discharge Data Studies Completed and Pending Completed Studies During Hospitalization Category Date Time Status XR chest 1V portable [id number] Routine Exams 05/30/22 07:00 Completed XR lumbar spine 1V [id number] Routine Exams 05/29/22 20:45 Completed XR lumbar spine 2-3V* [id number] Routine Exams 05/29/22 21:06 Completed Pending at discharge Category Date Time Status C-arm Fluoroscopy [id number] Routine Exams 05/29/22 Taken Radiology Impressions Lumbar Spine X-Ray 05/29/22 21:06 IMPRESSION: L3-S1 Posterior spinal fusion and laminectomy noted. Rods and pedicle screws are in place and there is no evidence of hardware failure. Disc spacers appear appropriately positioned. Chest X-Ray 05/30/22 07:00 IMPRESSION: 1. Low lung volumes are present, accentuating cardiac size and pulmonary markings. 2. Trace atelectasis or scar noted in the left lung base. Laboratory Results WBC 16.7 10^3/uL (4.0-10.0) H 05/31/22 02:17 RBC 3.15 10^6/uL (4.1-5.3) L 05/31/22 02:17 Hgb 9.6 g/dL (11.7-16.6) L 05/31/22 02:17 Hct 28.6 % (42.0-52.0) L 05/31/22 02:17 MCV 90.8 fl (80-94) 05/31/22 02:17 MCH 30.5 pg (28.0-34.0) 05/31/22 02:17 MCHC 33.6 g/dL (30.0-36.0) 05/31/22 02:17 RDW 13.6 % (12.1-15.1) 05/31/22 02:17 Plt Count 260 10^3/cmm (130-400) 05/31/22 02:17 MPV 11.7 fL (7.4-10.4) H 05/31/22 02:17 Neut % (Auto) 66.8 % 05/31/22 02:17 Lymph % (Auto) 18.2 % 05/31/22 02:17 [place] % (Auto) 13.0 % 05/31/22 02:17 Eos % (Auto) 0.1 % 05/31/22 02:17 Baso % (Auto) 0.2 % 05/31/22 02:17 Neut # (Auto) 11.15 10^3/uL (1.8-7.7) H 05/31/22 02:17 Lymph # (Auto) 3.0 10^3/uL (0.8-4.8) 05/31/22 02:17 [place] # (Auto) 2.2 10^3/uL (0.2-0.9) H 05/31/22 02:17 Eos # (Auto) 0.0 10^3/uL (0.0-0.8) 05/31/22 02:17 Baso # (Auto) 0.0 10^3/uL (0.0-0.1) 05/31/22 02:17 Nucleated RBC % (auto) 0 % 05/31/22 02:17 Total Counted 100 (0-100) 05/29/22 17:16 Atypical Lymphs % 3.0 % (0-5) 05/29/22 17:16 Absolute Neutrophils 5.9 10^3/cmm (1.4-6.5) 05/29/22 17:16 Segmented Neutrophils 75 % 05/29/22 17:16 Abs Segm Neuts (Man) 5.9 10/cmm (1.6-7.1) 05/29/22 17:16 Band Neutrophils 0.0 % 05/29/22 17:16 Abs Band Neuts (Man) 0.0 10^3/cmm (0.0-1.2) 05/29/22 17:16 Absolute Lymphocytes 1.4 10^3/cmm (1.2-3.4) 05/29/22 17:16 Lymphocytes (Manual) 15 % 05/29/22 17:16 Monocytes (Manual) 4.0 % 05/29/22 17:16 Absolute Monocytes 0.3 10^3/cmm (0.1-0.6) 05/29/22 17:16 Eosinophils (Manual) 0 % 05/29/22 17:16 Absolute Eosinophils 0.0 10^3/cmm (0.0-0.7) 05/29/22 17:16 Basophils (Manual) 0.0 % 05/29/22 17:16 Absolute Basophils 0.0 10^3/cmm (0.0-0.2) 05/29/22 17:16 Metamyelocytes 1.0 % 05/29/22 17:16 Myelocytes 1.0 % 05/29/22 17:16 Nucleated RBCs # 0.0 /100WBC 05/31/22 02:17 Platelet Estimate Normal (Normal) 05/29/22 17:16 D-Dimer 2.25 ug/mIFEU (0-0.59) H 05/30/22 05:28 Specimen Type Arterial 05/29/22 23:33 Sample Site Not specified 05/29/22 23:33 ABG pH 7.35 (7.35-7.45) 05/29/22 23:33 ABG pCO2 36.7 mmHg (35-45) 05/29/22 23:33 ABG pO2 104.0 mmHg (80.0-100.0) H 05/29/22 23:33 ABG HCO3 20.3 mmol/L (22-26) L 05/29/22 23:33 ABG Base Excess -4.7 mmol/L (-2.0-2.0) L 05/29/22 23:33 Cliff Test N/a 05/29/22 23:33 Hematocrit 39.2 % (42-52) L 05/29/22 23:33 O2 Delivery Device Nc 05/29/22 23:33 O2 Liters/Min 6.0 % 05/29/22 23:33 Development Representative ID Albert 05/29/22 23:33 Sodium 133 mmol/L (136-145) L 05/31/22 02:17 Potassium 4.4 mmol/L (3.5-5.1) 05/31/22 02:17 Chloride 98 mmol/L (98-107) 05/31/22 02:17 Carbon Dioxide 25 mmol/L (22-29) 05/31/22 02:17 Anion Gap 14.4 (5-19) 05/31/22 02:17 BUN 35 mg/dL (6-20) H 05/31/22 02:17 Creatinine 1.1 mg/dL (0.7-1.2) 05/31/22 02:17 GFR Calculation 70.6 mL/min (90-130) L 05/31/22 02:17 Glucose 282 mg/dL (65-115) H 05/31/22 02:17 Calculated Osmolality 294 mOsm/kg (285-295) 05/31/22 02:17 Calcium 7.8 mg/dL (8.5-10.5) L 05/31/22 02:17 Total Bilirubin 0.4 mg/dL (0.15-1.2) 05/31/22 02:17 AST 45 U/L (0-40) H 05/31/22 02:17 ALT 33 U/L (0-41) 05/31/22 02:17 Alkaline Phosphatase 46 U/L (40-130) 05/31/22 02:17 NT-Pro-B Natriuret Pep 89 pg/mL (0-125) 05/31/22 02:17 Total Protein 5.6 g/dL (6.6-8.7) L 05/31/22 02:17 Albumin 3.5 g/dL (3.5-5.2) 05/31/22 02:17 Globulin 2.1 g/dL (1.3-4.6) 05/31/22 02:17 TSH 1.07 uIU/mL (0.27-4.20) 05/31/22 02:17 Blood Type A Positive 05/29/22 14:05 Rho(D) Type Positive 05/29/22 14:05 Antibody Screen Negative 05/29/22 14:05 Crossmatch See Detail 05/29/22 14:05 Vitals Last Vital Signs Temp 98.8 F 05/31/22 04:00 Pulse 99 05/31/22 06:00 Resp 16 05/31/22 06:00 BP 111/64 05/31/22 06:00 Pulse Ox 95 05/31/22 06:00 O2 Del Method 05/31/22 06:00 O2 Flow Rate 10 05/29/22 21:50 Discharge Plan Discharge Patient Disposition: Home Condition: Stable Prescriptions: New hydrocodone-acetaminophen 5-325 mg tablet 1 - 2 tab PO .Q4-6H Qty: 40 0RF Continued ibuprofen 800 mg tablet 800 mg PO TID PRN (Reason: Pain) sildenafil 100 mg tablet 100 mg PO DAILY PRN (Reason: Sexual Activity) Rx Instructions: administer 30 minutes to 4 hours before activity lisinopril 10 mg tablet 10 mg PO BID levothyroxine 75 mcg tablet 75 mcg PO QAM tramadol 50 mg tablet 50 mg PO Q4H PRN (Reason: pain) Qty: 40 0RF (DME) Intraoperative neuromonitoring See Rx Instructions .Route .MEDSUPPLY Qty: 1 0RF Rx Instructions: As directed divalproex 500 mg tablet extended release 24 hr 500 mg PO BID Discharge Orders: Discharge Order (Routine); Ordered 05/31/22 Ordered By: Keanu Ambrocio Discharge Diet: Advance as tolerated Discharge Activity: Limit activity as instructed Patient Instructions: Opioid Safety Activity Restrictions/Additional Instructions: Thank you for [facility] for your care! The following is a list of instructions, from your provider, to follow upon your discharge to ensure you have the optimal recovery from your recent injury orsurgery. Follow-up care is a griffin part of your treatment and safety. Be sure to make and go to all appointments, and call your doctor if you are having problems. If you do not already have a follow-up appointment made, call Dr. Ambrocio office in the next 1-3 days to make follow up appointment for 1 weeks at [phone]. It is also a good idea to know your test results and keep a list of the medicines you take. Medications will be prescribed for you at your provider's discretion. These medications are to be used as instructed; if they are taken more often that prescribed they will not be refilled early and in most cases will not be refilled at all. > When a refill is needed,you should contact anabelle garcia 2-3 business days before your prescription runs out. Medications will NOT be refilled by distillation operator providers after hours! > Many pain medications contain Tylenol (Acetaminophen). Do not consume more than 4,000 mg of Tylenol per day in total with any combination ofmedications. > Pain medications can cause constipation. Please use an over the counter stool softener as directed, while taking pain medications. Consulty our local pharmacist with questions or recommendations on stool softeners. If constipation persists, contact our office or your primary care provider. > While under our care,you are not to receive pain medications or other controlled substances from any other provider unless our office is notified and approves. Any attempts to do so will result in refusal to prescribe any further pain medications and possible dismissal from our practice. ? Keep dressing on until seen in the office in 1 week. ? Showering is permitted, however we ask that you do not take a bath, sit in a whirlpool / Jacuzzi, or go swimming for 1 month. For only the first 2 days after surgery, lt wilt be necessary for you to cover your wound/dressing with plastic and tape to keep it dry. ? Walking is essential for the healing process after surgery. We would like you to slowly advance your walking. This should be done on relatively flat clear ground (inside or out) or can be done on a treadmill. Remember this goal does not have to happen all at once, slowly increase your distance and duration. This can be broken into more more than one walk per day as tolerated. Patients who walk as directed after surgery rarely require Physical Therapy. In the unlikely event this issue arises your provider will direct hospital staff to make the appropriate arrangements. ? No lifting over 5 pounds {a gallon of milk) or bending/twisting until further notice. Each of these activities places an unnecessary amount of stress onto the body and can impede the delicate healing process. > Instead of bending at the waist, keep your back straight and bend at the knees. > Instead of twisting your torso, keep your back straight and turn your entire body with your feet. ? You may sleep in any position which makes you comfortable. Many patients find comfort sleeping in a reclining chair. It is not abnormal to have difficulty sleeping for the first several weeks following your surgery. We recommend trying Benadry! or Tylenol PM as directed to help with your sleeping difficulties. Both medications are over the counter and available withoutprescription. ? NO SMOKING!!! Smoking dramatically increases the probability of developing postoperative wound infections. ? Common complaints after lumbar and/or thoracic spine surgery include, but are not limited to: numbness and/or tingling in the legs, pain around the incision and surrounding tissues, muscle spasms, or stiffness of the middle to low back. Contact our office if these symptoms persist or if an acute change occurs. ? No driving for the first 3-5days, and not while taking narcotics [] until seen at your follow-up appointment and cleared. There are no restrictions for riding on short trips, however if you take a longer trip, arrangements should be made to make regular stops to get out of the vehicle and stretch . ? Swelling is an unfortunate event that will take place with any surgery and is the primary source of your postoperative discomfort. While walking and regular approved activities helps control inflammation, there are additional steps you can take to minimizeswelling. > Place ice over the surgical site and surrounding tissue for twenty minutes, followed by applying a low/medium heat (heating pad) for an additional twenty minutes every 1-2 hours as needed for painrelief. > You may use of over the counter anti-inflammatory medications (Ibuprofen, Motrin, Aleve, Advil, etc) as directed on the package label. These types of medicines wm significantly reduce the amount of discomfort you experience after surgery from swelling. It should be noted that if you have and allergy to any of these medications, or a history of ulcers or kidney disease you should consult you primary care provider prior to starting these medications. 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
[2022-05-31] MEDS: divalproex DR 500 mg Tablet PO (08:26)
[2022-05-31] MEDS: metoprolol succinate ER (24 HR) 25 mg Tablet 12.5 MG PO (08:26)
[2022-05-31] MEDS: levothyroxine 75 mcg Tablet PO (08:26)
--- NOTE | 2022-05-31 09:23 | PC.NURSE ---
Dr. Ambrocio put in D/C orders. Dr. Tay approved D/C All D/C instructions educated to patient, patient signed D/C form
--- NOTE | 2022-05-31 09:53 | PC.NURSE ---
Dr. Ambrocio gave T.O. for patient to be off work for 2 weeks
--- NOTE | 2022-05-31 10:17 | PC.NURSE ---
Patient [place] at this time transported home by
== END 2022-05-31 10:18 | disposition home or self-care (01) | DRG 454 ==
LOC: ICU 05-30 02:48
PROVIDERS: Internal Medicine; Student in an Organized Health Care Education/Training Program; Admitting Provider Orthopaedic Surgery; PCP Emergency Medicine Emergency Medical Services; Visit Provider Orthopaedic Surgery
PROC: 0SG10AJ Fusion of 2 or more Lumbar Vertebral Joints with Interbody Fusion Device, Posterior Approach, Anterior Column, Open Approach (ICD-10-PCS; CPT 22612; principal; 2022-05-29 14:45)
PROC: 0SG10AJ Fusion of 2 or more Lumbar Vertebral Joints with Interbody Fusion Device, Posterior Approach, Anterior Column, Open Approach (ICD-10-PCS; CPT 63005; 2022-05-29 14:45)
DX: M47.27 Other spondylosis with radiculopathy, lumbosacral region (principal); D62 Acute posthemorrhagic anemia; M51.17 Intervertebral disc disorders with radiculopathy, lumbosacral region; M51.36 Other intervertebral disc degeneration, lumbar region; Z87.891 Personal history of nicotine dependence; E87.70 Fluid overload, unspecified; I10 Essential (primary) hypertension; E03.9 Hypothyroidism, unspecified; R00.0 Tachycardia, unspecified; Z79.891 Long term (current) use of opiate analgesic
CPT/HCPCS: 36415; 36430; 51702; 71045; 72020; 72100; 76000; 80053; 82803; 83880; 84443; 85007; 85014; 85018; 85025; 85027; 85378; 86850; 86900; 86920; 93005; 97116; 97162; C1713; J0690; J1100; J1170; J1644; J1885; J1940; J2250; J2270; J2370; J2405; J2704; J3010; J3370; J3490; J7030; P9016; P9045

== ENCOUNTER → 2022-06-13 08:02 | Outpatient (BNVA) | payer OTHER, SELFPAY | PROVIDERS: PCP Emergency Medicine Emergency Medical Services; Visit Provider Physician Assistant | DX: Z98.1 Arthrodesis status (principal) | CPT/HCPCS: 72100 ==

== ENCOUNTER → 2022-07-11 07:55 | Outpatient (BNVA) | payer OTHER, SELFPAY | PROVIDERS: PCP Emergency Medicine Emergency Medical Services; Visit Provider Physician Assistant | DX: Z98.1 Arthrodesis status (principal) | CPT/HCPCS: 72100 ==

== ENCOUNTER → 2022-08-22 07:45 | Outpatient (BNVA) | payer OTHER, SELFPAY | PROVIDERS: PCP Emergency Medicine Emergency Medical Services; Visit Provider Physician Assistant | DX: Z98.1 Arthrodesis status (principal) | CPT/HCPCS: 72100 ==

== ENCOUNTER → 2022-11-21 07:42 | Outpatient (BNVA) | payer OTHER, SELFPAY | PROVIDERS: PCP Emergency Medicine Emergency Medical Services; Visit Provider Physician Assistant | DX: Z98.1 Arthrodesis status (principal) | CPT/HCPCS: 72100 ==